=== PATIENT | male | born 1945 | race Caucasian/White ===

== ENCOUNTER 2016-12-31 06:05 | Observation (INO) | payer MEDICARE ==
[~2016-12-31 06:05] MED LIST: Buffered Lidocaine 1% SYR 3ML* 3 ML/SYR SYRINGE INTRADERM ONE; Famotidine IV* 10 MG/ML 2 ML (20 mg) IV ONE; Metoclopramide TAB* 10 MG PO ONE
[2016-12-31] MEDS ORDERED: Famotidine IV* 10 MG/ML 2 ML (20 mg) ONE (06:49)
[2016-12-31] MEDS ORDERED: ceFAZolin 2 GM PREMIX (*) 2 GM/50 ML BAG IVPB ONE (06:50)
[2016-12-31] MEDS ORDERED: Buffered Lidocaine 1% SYR 3ML* 3 ML/SYR SYRINGE ONE (06:50)
[2016-12-31] MEDS ORDERED: Metoclopramide TAB* 10 MG ONE (06:50)
[2016-12-31] MEDS ORDERED: Thrombin 5,000 UNITS* 1 APPLIC KIT - topical use - TOPICAL ONE (07:03)
[2016-12-31] MEDS ORDERED: Lidocain 1% EPI 1:100,000 * 30 ML MDV ONE (07:03)
[2016-12-31] MEDS ORDERED: Bacitracin IV* 50,000 UNITS INJ ONE (07:03)
[2016-12-31] MEDS ORDERED: Artificial Tear OPHTH.OINT* 3.5 GM ONE (07:23)
[2016-12-31] MEDS ORDERED: Midazolam* 1 MG/ML 5 ML VIAL (5 MG) ONE (07:25)
[2016-12-31] MEDS ORDERED: Dexamethasone IV* 4 MG/ML 1 ML (4 MG) ONE (07:25)
[2016-12-31] MEDS ORDERED: Ondansetron INJ* 2 MG/ML VIAL ONE (07:25)
[2016-12-31] MEDS ORDERED: Propofol* 10 MG/ML 20 ML BTL IV PUSH ONE (07:25)
[2016-12-31] MEDS ORDERED: Lidocaine 2% MPF* 2 ML VIAL ONE (07:25)
[2016-12-31] MEDS ORDERED: fentaNYL* 50 MCG/ML 2 ML VIAL (100 MCG VIAL) ONE ×2 (07:25→10:17)
[2016-12-31] MEDS ORDERED: Cisatracurium* 2 MG/ML MDV 10 ML ONE (07:25)
[2016-12-31] MEDS ORDERED: KETAMINE HCL* 50 MG/ML 10 ML VIAL ONE (07:25)
[2016-12-31] MEDS ORDERED: EPHEDrine (Pressors)* 50 MG/ML VIAL ONE (08:24)
[2016-12-31] MEDS ORDERED: oxyCODONE/Acetamin 5/325 MG* TAB PO PRN (08:34)
[2016-12-31] MEDS ORDERED: Ondansetron INJ* 2 MG/ML VIAL IV PRN ×2 (08:34→09:21)
[2016-12-31] MEDS ORDERED: HYDROmorphone INJ* 1 MG/ML CARPUJECT SYRINGE IV PRN (08:34)
[2016-12-31] MEDS ORDERED: Acetaminophen TAB* 325 MG PO PRN (09:21)
[2016-12-31] MEDS ORDERED: Magnesium Hydroxide LIQ* 30 ML UDC PO PRN (09:21)
[2016-12-31] MEDS ORDERED: Morphine INJ* 4 MG/ML 1 ML CARPUJECT IV PRN (09:30)
[2016-12-31] MEDS ORDERED: Nicotine PATCH 21 MG/24 HR* PATCH TRANSDERM SCH (10:00)
[2016-12-31] MEDS: fentaNYL* 50 MCG/ML 2 ML VIAL (100 MCG VIAL) IV PRN ×2 (10:18→10:27)
[2016-12-31] MEDS ORDERED: oxyCODONE TAB* 5 MG TAB ONE (11:44)
[2016-12-31] MEDS ORDERED: Morphine INJ* 4 MG/ML 1 ML CARPUJECT ONE (11:44)
[2016-12-31] MEDS: oxyCODONE TAB* 5 MG TAB PO PRN ×3 (11:47→20:32)
--- NOTE | 2016-12-31 13:46 | RAD ---
Indication: Decompressive L4-L5 lumbar laminectomy. Comparison: January 10, 2016 MRI. Prone crosstable lateral radiograph lumbar sacral spine 0820 hours: Anterior margin of surgical instrument at level of L4-L5 facet joints. Prone crosstable lateral radiograph lumbar sacral spine 0845 hours: Anterior margin of surgical instrument at the level of the posterior margin of the L5-S1 disc space. IMPRESSION: Procedural control films.
[2016-12-31] MEDS: sulfaSALAzine TAB* 500 MG PO SCH (17:12)
[2016-12-31] MEDS: Morphine TAB Extended Release (*) 30 MG TAB.ER PO PRN (20:32)
[2017-01-01] MEDS: oxyCODONE TAB* 5 MG TAB PO PRN ×3 (00:33→08:40)
--- NOTE | 2017-01-01 07:45 | PN ---
Progress Note - Progress Note SOAP: Subjective: [This is a 71 year old male s/p decompressive lumbar laminectomy L4-5 for spinal stenosis, POD #1. He complains this morning of low back incisional pain. He has been ambulating around the unit with resolution in pre-operative lower extremity pain. He is eating and drinking without difficulty. He denies lower extremity pain, numbness and weakness. No headache. ] Objective: [ Vital Signs: Temp Pulse Resp BP Pulse Ox 98.6 F 77 16 146/81 100 01/01/17 04:45 01/01/17 03:26 01/01/17 06:34 01/01/17 03:26 01/01/17 03:26 General: Alert and oriented. No distress. Neuro: Motor and sensory intact. Incision: Intact with [place]. PRATIBHA removed today without complication. No swelling. Extremities: Full ROM. PRATIBHA drain output 12/31/16 12/31/16 12/31/16 10:45 14:42 18:11 Output, PRATIBHA #1 40 15 30 12/31/16 01/01/17 01/01/17 22:00 03:02 06:00 Output, PRATIBHA #1 15 20 0 ] Assessment: [This patient is following a satisfactory post-op course. ] Plan: [1. Discharge home today. 2. Discharge instructions including wound care and activity level were discussed with the patient. ]
[2017-01-01 08:13] VITALS: BP 149/83
[2017-01-01] MEDS: sulfaSALAzine TAB* 500 MG PO SCH (08:39)
[2017-01-01] MEDS: Morphine TAB Extended Release (*) 30 MG TAB.ER PO PRN (08:40)
[2017-01-01] MEDS ORDERED: Lisinopril TAB* 10 MG PO SCH (09:00)
[2017-01-01] MEDS ORDERED: Colchicine* 0.6 MG TAB PO SCH (09:00)
[2017-01-01] MEDS ORDERED: Nicotine PATCH 21 MG/24 HR* PATCH TRANSDERM SCH (09:00)
[2017-01-01] MEDS ORDERED: Nicotine Patch Removal NOTE PATCH OFF SCH (21:00)
--- NOTE | 2017-01-01 22:48 | OP ---
DATE OF OPERATION: 12/31/16 - ROOM #338 DATE OF : 45 PRIMARY SURGEON: Dr. Pedro Tan. STORE LOSS PREVENTION MANAGER: GEORGE Martinez ANESTHESIOLOGIST: Luiz Isaacs MD ANESTHESIA: General. PRE-OP DIAGNOSIS: Lumbar spinal stenosis, L4-5. POST-OP DIAGNOSIS: Lumbar spinal stenosis, L4-5, L5-S1. OPERATIVE PROCEDURE: Decompressive lumbar laminectomy, L4-5, L5-S1. DESCRIPTION OF PROCEDURE: After satisfactory general anesthesia was obtained, the patient was placed on the operating room table in the prone position with the chest supported on the Ramos frame and the back slightly flexed. The lumbar region was clipped, prepped, and draped in a sterile manner for lumbar laminectomy and a skin incision outlined from L4 to the sacrum. This incision was infiltrated with 1% Xylocaine with epinephrine after which it was turned down sharply to the level of the lumbar fascia. The fascia was divided along the spinous processes of L4 and L5 and the para-spinal musculature was stripped away from these posterior elements using the periosteal elevator and monopolar cautery. An intraoperative x-ray was obtained verifying proper interspace localization after which a decompression was initially carried out at was what felt to be the L4-5 level. The spinous process of L4 was removed as was the spinous process of L5. The inferior aspect of the lamina was then removed. The pathology at this level was noted to be mild ligamentous thickening and a generous foraminotomy was carried out over both nerve roots. An additional radiograph was obtained showing that this indeed was the L5- S1 level and an additional superior exposure was obtained and the L4-5 level decompressed. At this level, the pathology was much more prominent with thickened bony hypertrophy of facets particularly at the level of the L5 pedicle. Generous decompressions were carried out on either side until both of the L5 nerve roots were noted to be free in their course. The disk was palpated and was noted to be flat. After assuring adequate hemostasis, the wound was thoroughly irrigated after which the Gelfoam was placed over the laminectomy defects. A drain was placed in the epidural space and tunnelled out toward the left side. The fascia was reapproximated with 0 Vicryl sutures. The subcutaneous tissue was closed with 3-0 Vicryl suture and the skin closed with skin clips. The estimated blood loss was less than 50 cc and the final sponge, pad, and needle counts were correct. The patient was taken to the recovery room, extubated and in stable condition. [id number]/[facility] #: [id number] [facility]ITALJodie
--- NOTE | 2017-01-07 23:36 | DS ---
DISCHARGE SUMMARY: DATE OF ADMISSION: 12/31/16 DATE OF DISCHARGE: 01/01/17 DISCHARGE DIAGNOSES: 1. Lumbar spinal stenosis, L4-L5. 2. Hypertension. 3. Rheumatoid arthritis. SPECIAL PROCEDURE: Decompressive lumbar laminectomy, L4-L5. HOSPITAL COURSE: This 71-year-old male was seen in the office with signs and symptoms of severe lumbar spinal stenosis. He failed to improve over several months of conservative treatment and was admitted at this time for elective surgical intervention. On the day of admission, he was taken to surgery where, under general anesthesia, a decompressive lumbar laminectomy at L4-L5 operation was carried out. Postoperatively, he was feeling well. The pain was well controlled. He was ambulating independently. Preoperative symptoms of lower extremity pain were improved. He was eating, drinking and voiding without difficulty. On the first postoperative day, he was discharged home to the care of her family. DISCHARGE INSTRUCTIONS: Discharge instructions including wound care and activity level were provided and discussed with the patient. He will be seen in the office in 7 to 10 days for followup and staple removal. DISCHARGE MEDICATIONS: No discharge medications prescribed. GEORGE SIMENTAL [id number]/[facility] #: [id number] MENDEL
== END 2017-01-01 10:00 | disposition home or self-care (01) ==
LOC: OR 06:05 → SSU 09:21
PROVIDERS: ADMIT Neurological Surgery; ATTEND Neurological Surgery
PROC: 01NB0ZZ Release Lumbar Nerve, Open Approach (ICD-10-PCS; 2016-12-31)
PROC: 0SB20ZZ Excision of Lumbar Vertebral Disc, Open Approach (ICD-10-PCS; principal; 2016-12-31 07:45)
DX: M48.06 Spinal stenosis, lumbar region (principal); I10 Essential (primary) hypertension; M06.9 Rheumatoid arthritis, unspecified; Z79.899 Other long term (current) drug therapy
CPT/HCPCS: 72100; 96374; 96375; A9270-GY; G0378; J0690; J1100; J2250; J2270; J2405; J2704; J3010

== ENCOUNTER 2017-11-28 14:50 | Emergency (ER) | payer MEDICARE ==
--- OUTSIDE RECORDS SUMMARY | 2017-11-28 14:56 | XMS REPORT | Continuity of Care Document ---
:1945 Author Organization [facility] Address [address], [place] [id number] Phone Care Team Providers Name Role Phone Lexi Garcia MD Unavailable Unavailable Lexi Garcia MD Unavailable Unavailable Allergies, Adverse Reactions, Alerts Substance Reaction Severity Status No Known Allergies Unknown Active Medications Medication Instructions Dosage Effective Dates Status Comments (start - stop) SULFASALAZINE DR 500 TAKE THREE TABLETS BY 1500 MG - Active MG TAB MOUTH TWICE A DAY AFTER MEALS COLCRYS 0.6 MG TABLET TAKE ONE TABLET BY 0.6 MG - Active MOUTH EVERY DAY lisinopril 40 mg take 1 tablet by oral 40 MG - Active tablet route every day morphine ER 30 mg take 1 capsule by 30 MG - Active capsule,extended oral route 2 times release 24 hr every day multiphase amitriptyline 10 mg take 1 tablet by oral 10 MG - Active tablet route every day gabapentin 400 mg take 1 capsule by 400 MG - Active capsule oral route 3 times every day oxycodone 15 mg tablet take 1 tablet by oral 15 MG - Active route every 6 hours as needed Problems Condition Effective Dates (start - stop) Clinical Status Rheumatoid arthritis w/o rheumatoid factor of multiple sites Other watermaster drug therapy Other disorders of calcium metabolism Rheumatoid arthritis w/o rheumatoid factor of multiple sites Other intermediate drug therapy Other disorders of calcium metabolism Rheumatoid arthritis w/o rheumatoid factor of multiple sites Other disorders of calcium metabolism Other intermediate drug therapy Lumbago Rheumatoid arthritis w/o rheumatoid factor of multiple sites Other intermediate drug therapy Other disorders of calcium metabolism Rheumatoid arthritis w/o rheumatoid factor of multiple sites Other watermaster drug therapy Lumbago Other disorders of calcium metabolism Rheumatoid factor negative - Active Procedures Procedure Date Unknown Results Test Name Date and Time Measure Units Reference Range Abnormal Flag Comments Unknown Advance Directives Directive Yes / No Effective Date File Name Unknown Encounters Encounter Practice Location Reason(s) Diagnoses Date Provider Care Team Description For Visit Members Arthritis Arthritis [facility] PA- March. Niles Cage 7 5794 [facility], 5794 PLLC [facility], [place], [place], [id number], [id number], [place]. [place] tel:[phone] tel:[phone] Arthritis Arthritis [facility] PA- March. Associates [facility], 5[address] PLL[facility], [place], [place], [id number], [place]. [place] tel:[phone] tel:[phone] Arthritis Arthritis Rheumatoid [facility] arthritis w/o PA- March. Provider: Niles Cage rheumatoid 7 5794 [facility], 5794 PLLC factor of [facility], [address] [facility], [facility], sitesOther [place], [address], [place], disorders of [place], [place], [place], calcium [id number], [id number]. [id number], metabolismOth [place]. tel:[phone] [place] er intermediate tel:[phone] tel:[phone] drug [phone] ring [phone] therapyLumbag Provider: ardha Garcia MD , [address] [place] [address], [id number]. tel:[phone] Arthritis Arthritis Rheumatoid [facility] arthritis w/o PA- March. Provider: Niles Cage rheumatoid 6 [phone] [facility], 5794 PLLC factor of [facility] DO, [address] [facility], [facility], sitesOther [place], [address], [place], [place], [place], [place], drug [id number], [id number]. [id number], therapyOther [place]. tel:[phone] [place] disorders of tel:[phone] tel:[phone] calcium [phone] ring [id number] metabolism Provider: Lexi Argueta, [address] [place] [address], [id number]. tel:[phone] Arthritis Arthritis Rheumatoid [facility] arthritis w/o PA-C March. Provider: Niles Cage rheumatoid 6 5794 [facility], 5[facility]C factor of [facility], [address] [facility], [facility], sitesOther [place], [address], [place], [place], [place], [place], [place], drug [id number], [address]. [id number], therapyOther [place]. tel:[phone] [place] disorders of tel:[phone] tel:[phone] calcium [phone] ring [id number] metabolism Provider: Lexi Argueta, [address] [place], [place], [id number]. tel:[phone] Arthritis Arthritis Rheumatoid [facility] arthritis w/o PA-C March. Provider: Niles johnson 6 5794 [facility], 5794 PLLC factor of [facility], [address] [facility], [facility], sitesOther [place], [address], [place], [place], [place], [place], [place], drug [id number], [address]. [id number], therapyLumbag [place]. tel:[phone] [place] oOther tel:[phone] tel:[phone] disorders of [phone] ring [phone] calcium Provider: metabolism Lexi Argueta, [address] [place], [place], [id number]. tel:[phone] Arthritis Arthritis Rheumatoid [facility] arthritis w/o PA-C March. Provider: Niles Cage rheumatoid 5 5794 [facility], 5794 PLLC factor of [facility] DO, [address] [facility] [address] [facility], [facility], sitesOther [place], [address], [place], [place], [place], [place], [place], drug [id number], [address]. [id number], therapyOther [place]. tel:[phone] [place] disorders of tel:[phone] tel:[phone] calcium [phone] ring [id number] metabolism Provider: Lexi Garcia MD , [address] [place] [address], [place], [place], [id number]. tel:[phone] Arthritis Arthritis [facility], [place] 4-201 MD Cormier. Provider: [facility] 5 5794 Lexi [facility], 5794 PLLC [facility] [place], , [address] [place] [address], [place], [place], [place], [id number], [place], [place], [id number], [place]. [id number]. [place] tel:[phone] tel:[phone] tel:[phone] Family History Family Member Diagnosis Age At Onset Status Brother aneurysm , brain 70 N Immunizations Vaccine Date Status Comments Influenza, injectable, trivalent, completed - Completed reason: New split virus, 4 years and older, Fluvirin [id number] Flu (split) (3 yrs or older) completed - Completed reason: Other Provider Pneumococcal polysaccharide PPV23 completed - Completed reason: Other Provider Payers Payer name Insurance type Covered libertarian ID Authorization(s) [employer] 16 [id number] [employer] 16 [id number] Social History Type Description Quantity Date Captured Unknown Vital Signs Date / Height Weight BMI Pulse Blood Temperature Respiratory Body Head BMI Time: Rate Pressure Rate Surface Circumference percentile Area Unknown Chief Complaint And Reason For Visit Unknown Chief Complaint And Reason For Visit Reason For Referral Reason For Referral Unknown Plan Of Care Date Type Action Status Appointment Tripp Lucas BOOKED Date Type Problem Goal Intervention Status Start Date Unknown. History Of Present Illness Encounter Date Complaint History Of Present Illness This patient has no known history of present illness Functional Status Encounter Date Functional Assessment Cognitive Assessment Unknown Medications Administered Medication Instructions Dosage Effective Dates (start - stop) Status Comments Drug Treatment Unknown Instructions Date Instruction Additional Information Risks/benefits of medications reviewed Hold Medication and call if any side effect develops. Patient plan printed and given along with recommendations. Call if symptoms worsen. Reviewed importance of compliance/adherence to medications prescribed Risks/benefits of medications reviewed Discussed importance of holding DMARDs/ biologics if patient develops an infection and to notify the treating physician Reviewed importance of compliance/adherence to medications prescribed Risks/benefits of medications reviewed Discussed importance of holding DMARDs/ biologics if patient develops an infection and to notify the treating physician Risks/benefits of medications reviewed Reviewed importance of compliance/adherence to medications prescribed Risks/benefits of medications reviewed Discussed importance of holding DMARDs/ biologics if patient develops an infection and to notify the treating physician Reviewed importance of compliance/adherence to medications prescribed Risks/benefits of medications reviewed Discussed importance of holding DMARDs/ biologics if patient develops an infection and to notify the treating physician Diagnostic studies discussed/reviewed: Labs Reviewed importance of compliance/adherence to medications prescribed Risks/benefits of medications reviewed Discussed importance of holding DMARDs/ biologics if patient develops an infection and to notify the treating physician
[2017-11-28 15:06] VITALS: BP 114/71
[2017-11-28] MEDS ORDERED: Aspirin Low Dose CHEW TAB* 81 MG PO ONE (15:27)
--- NOTE | 2017-11-28 15:35 | UC ---
Cardiac HPI - HPI Summary HPI Summary: INTERMITTENT SHARP LEFT SIDED CHEST PAIN OVER THE PAST FEW DAYS. RADIATES THROUGH TO HIS BACK. HAS SOME ASSOCIATED SOB BUT DENIES NAUSEA, FEVER, SWEATS, SYNCOPE. ALSO REPORTS HIS LEFT FINGERS ARE INTERMITTENTLY NUMB AND TINGLY. SX WORSE WITH DEEP BREATHS. BETTER IF HE MOVES AROUND. HAS HAD SOME SHARP LEFT SIDED ABDOMINAL PAIN OVER THE PAST FEW MONTHS WELL. - History of Current Complaint Chief Complaint: UCChestPain Stated Complaint: CHEST PAIN,SOB Time Seen by Provider: 11/28/17 15:15 Hx Obtained From: Patient Onset/Duration: Sudden Onset, Lasting Days Timing: Intermittent Episodes Lasting: Initial Severity: Moderate Current Severity: None Pain Intensity: 9 - AT ITS WORST Chest Pain Location: Left Anterior Character: Sharp/Stabbing Aggravating Factor(s): Deep Breaths Alleviating Factor(s): Spontaneous Resolution Associated Signs & Symptoms: Positive: Chest Pain, Numbness, Tingling, SOB - Allergy/Home Medications Allergies/Adverse Reactions: Allergies Allergy/AdvReac Type Severity Reaction Status Date / Time No Known Allergies Allergy Verified 11/28/17 15:06 Home Medications: Home Medications Oxycodone TAB(NF) [Oxycodone HCl 10 MG] 10 mg PO Q6H PRN 11/28/17 [History Confirmed 11/28/17] PMH/Surg Hx/FS Hx/Imm Hx - Additional Past Medical History Additional PMH: BACK PAIN Cardiovascular History: Hypertension - Surgical History Surgical History: Yes Surgery Procedure, Year, and Place: 2001 RIGHT TOTAL KNEE REPLACEMENT, [facility]. 2014 LEFT KNEE ARTHROSCOPIC SURGERY, [facility]. 2016 Back surgery - Family History Known Family History: Positive: Cardiac Disease, Hypertension - Social History Alcohol Use: Rare Substance Use Type: None Smoking Status (MU): Light Every Day Tobacco Smoker Type: Cigars Amount Used/How Often: 1 CIGAR EVERY 2-3 DAYS X 50 YEARS Length of Time of Smoking/Using Tobacco: 50 YEARS Have You Smoked in the Last Year: Yes Household Exposure Type: Cigars - Immunization History Most Recent Influenza Vaccination: FALL 2015 Most Recent Tetanus Shot: 2009 Most Recent Pneumonia Vaccination: 2014 Review of Systems Constitutional: Negative Respiratory: Shortness Of Breath Cardiovascular: Chest Pain Gastrointestinal: Negative Neurological: Paresthesia - LEFT FINGERS, Numbness - LEFT FINGERS All Other Systems Reviewed And Are Negative: Yes Physical Exam Triage Information Reviewed: Yes Appearance: Well-Appearing, No Pain Distress, Well-Nourished Vital Signs: Initial Vital Signs Temp 98.8 F 11/28/17 14:58 Pulse 85 11/28/17 14:58 Resp 18 11/28/17 14:58 BP 114/71 11/28/17 14:58 Pulse Ox 96 11/28/17 14:58 Vital Signs Reviewed: Yes Eyes: Positive: Conjunctiva Clear ENT: Positive: Hearing grossly normal Neck: Positive: Supple Respiratory Exam: Normal Cardiovascular Exam: Normal Abdomen Description: Positive: Soft Musculoskeletal: Positive: No Edema Neurological: Positive: Alert Psychological: Positive: Age Appropriate Behavior Skin: Negative: rashes Diagnostics - EKG Cardiac Rate: NL Cardiac Rhythm: Sinus: Normal - 82 BPM Ectopy: None ST Segment: Normal - Assessment/Plan Course Of Treatment: TO [facility] ED BY PRIVATE CAR - Clinical Impression Provider Diagnoses: CHEST PAIN Discharge - Discharge Plan Condition: Stable Disposition: OTHER Discharge Disposition Comment: TO [facility] ED BY PRIVATE CAR Patient Education Materials: Chest Pain (ED) Referrals: Lexi Garcia MD [Primary Care Provider] - If Needed Additional Instructions: GO DIRECTLY TO THE [facility] ED FROM HERE FOR FURTHER EVALUATION. YOU RECEIVED ASPIRIN 81MG X 4 IN THE .
== END 2017-11-28 15:36 ==
LOC: UCEAST 14:50
DX: R07.9 Chest pain, unspecified (principal); R06.02 Shortness of breath; I10 Essential (primary) hypertension; F17.210 Nicotine dependence, cigarettes, uncomplicated
CPT/HCPCS: 93005; 99212; A9270-GY; G0463

== ENCOUNTER 2017-11-28 15:55 | Emergency (ER) | payer MEDICARE ==
[2017-11-28] MEDS ORDERED: Aspirin Low Dose CHEW TAB* 81 MG PO ONE (16:07)
[2017-11-28 17:00] LABS: ABS Basophils 0.1 10^3/ul (0-0.2); ABS Eosinophils 0.3 10^3/ul (0-0.6); ABS Lymphocytes 0.9 10^3/ul (1.0-4.8); ABS Monocytes 0.5 10^3/ul (0-0.8); ABS Neutrophils 4.4 10^3/ul (1.5-7.7); ABS Nucleated RBC 0 10^3/ul; Eosinophil % 4.4 % (0-6); Hematocrit 39 % (42-52); Hemoglobin 12.8 g/dl (14.0-18.0); Lymphocyte % 15.2 % (25-47); Mean Corpuscular HGB Conc 33 g/dl (31-36); Mean Corpuscular Hemoglobin 30 pg (27-31); Mean Corpuscular Volume 89 fL (80-94); Mean Platelet Volume 9 um3 (7.4-10.4); Nucleated Red Blood Cells % 0; Platelet Count 279 10^3/ul (150-450); Red Blood Count 4.35 10^6/ul (4.0-5.4); Red Cell Distribution Width 14 % (10.5-15); White Blood Count 6.2 10^3/ul (3.5-10.8)
[2017-11-28 17:16] LABS: EGFR Non-African American 57.8 (>60)
--- NOTE | 2017-11-28 17:18 | RAD ---
INDICATION: Chest pain. COMPARISON: Comparison is made with a prior chest x-ray study from November 15, 2016. TECHNIQUE: A portable view of the chest was obtained. FINDINGS: Cardiac and mediastinal contours appear to be within normal limits. The lungs are clear. The previous seen noted nodular densities in the right upper lobe are not visualized. No pleural effusion is seen. IMPRESSION: NO EVIDENCE FOR ACUTE DISEASE.
[2017-11-28] MEDS ORDERED: NS 0.9% 1000 ML* 1,000 ML IV ONE (17:36)
[2017-11-28 20:09] VITALS: BP 113/89
--- NOTE | 2017-11-28 22:20 | ED ---
Nick Lucas Natalie, scribed for Jeff Bennett MD on 11/28/17 at 1637 . HPI Chest Pain - HPI Summary HPI Summary: The pt is a 72 y/o M presenting to the ED from [facility] c/o chest pain starting five days ago. The pain is described as sharp pain in LUQ that radiates to left back. The pain is rated 1/0 in severity. The patient is not currently in pain in the ED. When the pain is present, the pain is aggravated by breathing and is alleviated by nothing. The patient has treated the pain with ASA DIFFERENTIAL TESTER at [facility]. Pt additionally c/o SOB at night and chest pressure starting a few months ago. He smokes cigars occasionally. He has hx of HTN. - History of Current Complaint Chief Complaint: EDChestPainROMI Time Seen by Provider: 11/28/17 16:07 Hx Obtained From: Patient Onset/Duration: Started Days Ago - started five days ago Timing: Intermittent Initial Severity: Mild Current Severity: Mild Pain Intensity: 1 Pain Scale Used: 0-10 Numeric Chest Pain Location: Left Anterior Chest Pain Radiates: Yes Chest Pain Radiates To:: Back Character: Sharp/Stabbing, Tightness Aggravating Factor(s): Deep Breaths Alleviating Factor(s): Nothing Associated Signs and Symptoms: Positive: Chest Pain, Shortness of Breath, Back Pain, Other: - chest pressure - Additional Pertinent History Primary Care Physician: SOFÍA - Allergy/Home Medications Allergies/Adverse Reactions: Allergies Allergy/AdvReac Type Severity Reaction Status Date / Time No Known Allergies Allergy Verified 11/28/17 16:01 PMH/Surg Hx/FS Hx/Imm Hx Previously Healthy: No Endocrine/Hematology History: Denies: Hx Thyroid Disease Cardiovascular History: Reports: Hx Hypertension Respiratory History: Reports: Other Respiratory Problems/Disorders - RECENT HX OF LUNG INFECTION - ZPACK - NO PROBLEMS NOW GI History: Denies: Hx Ulcer Musculoskeletal History: Reports: Hx Arthritis - RHEUMATOID Sensory History: Reports: Hx Contacts or Glasses - READING GLASSES Denies: Hx Hearing Aid Opthamlomology History: Reports: Hx Contacts or Glasses - READING GLASSES Psychiatric History: Denies: Hx Panic Disorder - Surgical History Surgery Procedure, Year, and Place: 2001 RIGHT TOTAL KNEE REPLACEMENT, [facility] [place]. 2014 LEFT KNEE ARTHROSCOPIC SURGERY, [facility] [place]. 2016 Back surgery Hx Anesthesia Reactions: No Infectious Disease History: No Infectious Disease History: Denies: Hx Clostridium Difficile, Hx Hepatitis, Hx Human Immunodeficiency Virus (HIV), Hx of Known/Suspected MRSA, Hx Shingles, Hx Tuberculosis, Hx Known/ Suspected VRE, Hx Known/Suspected VRSA, History Other Infectious Disease, Traveled Outside the [place] in Last 30 Days - Family History Known Family History: Positive: Cardiac Disease, Hypertension - Social History Alcohol Use: Rare Substance Use Type: Reports: None Smoking Status (MU): Light Every Day Tobacco Smoker Type: Cigars Amount Used/How Often: 1 CIGAR EVERY 2-3 DAYS X 50 YEARS Length of Time of Smoking/Using Tobacco: 50 YEARS Have You Smoked in the Last Year: Yes Review of Systems Negative: Fever Positive: Chest Pain, Other - chest pressure Positive: Shortness Of Breath All Other Systems Reviewed And Are Negative: Yes Physical Exam Triage Information Reviewed: Yes Vital Signs On Initial Exam: Initial Vitals Temp Pulse Resp BP Pulse Ox 97.8 F 76 16 142/75 96 11/28/17 16:01 11/28/17 16:01 11/28/17 16:01 11/28/17 16:01 11/28/17 16:01 Vital Signs Reviewed: Yes Appearance: Positive: Well-Appearing, No Pain Distress Skin: Positive: Warm, Skin Color Reflects Adequate Perfusion, Dry, Other - fungal changes in finger nails Head/Face: Positive: Normal Head/Face Inspection Eyes: Positive: EOMI, WENDY ENT: Positive: Normal ENT inspection Neck: Positive: Supple, Nontender Respiratory/Lung Sounds: Positive: Clear to Auscultation, Breath Sounds Present Cardiovascular: Positive: RRR, Pulses are Symmetrical in both Upper and Lower Extremities Abdomen Description: Positive: Nontender, Soft Bowel Sounds: Positive: Present Musculoskeletal: Positive: Normal, Strength/ROM Intact, Other - no edema Neurological: Positive: Normal, Sensory/Motor Intact, Alert, Oriented to Person Place, Time Diagnostics - Vital Signs Vital Signs Temp Pulse Resp BP Pulse Ox 11/28/17 16:01 97.8 F 76 16 142/75 96 - Laboratory Lab Results: Lab Results 11/28/17 11/28/17 11/28/17 Range/Units 16:45 16:45 16:45 WBC 6.2 (3.5-10.8) 10^3/ul RBC 4.35 (4.0-5.4) 10^6/ul Hgb 12.8 L (14.0-18.0) g/dl Hct 39 L (42-52) % MCV 89 (80-94) fL MCH 30 (27-31) pg MCHC 33 (31-36) g/dl RDW 14 (10.5-15) % Plt Count 279 (150-450) 10^3/ul MPV 9 (7.4-10.4) um3 Neut % (Auto) 71.0 (38-83) % Lymph % (Auto) 15.2 L (25-47) % Hardin % (Auto) 8.4 (1-9) % Eos % (Auto) 4.4 (0-6) % Baso % (Auto) 1.0 (0-2) % Absolute Neuts (auto) 4.4 (1.5-7.7) 10^3/ul Absolute Lymphs (auto) 0.9 L (1.0-4.8) 10^3/ul Absolute Monos (auto) 0.5 (0-0.8) 10^3/ul Absolute Eos (auto) 0.3 (0-0.6) 10^3/ul Absolute Basos (auto) 0.1 (0-0.2) 10^3/ul Absolute Nucleated RBC 0 10^3/ul Nucleated RBC % 0 INR (Anticoag Therapy) 0.90 (0.77-1.02) APTT 33.7 (26.0-36.3) seconds D-Dimer, Quantitative < 200 (Less Than 230) ng/mL Sodium (133-145) mmol/L Potassium (3.5-5.0) mmol/L Chloride (101-111) mmol/L Carbon Dioxide (22-32) mmol/L Anion Gap (2-11) mmol/L BUN (6-24) mg/dL Creatinine (0.67-1.17) mg/dL Est GFR ( Amer) (>60) Est GFR (Non-Af Amer) (>60) BUN/Creatinine Ratio (8-20) Glucose (70-100) mg/dL Lactic Acid (0.5-2.0) mmol/L Calcium (8.6-10.3) mg/dL Total Bilirubin (0.2-1.0) mg/dL AST (13-39) U/L ALT (7-52) U/L Alkaline Phosphatase (34-104) U/L CK-MB (CK-2) (0.6-6.3) ng/mL Troponin I (<0.04) ng/mL B-Natriuretic Peptide 64 ( - 100) pg/mL Total Protein (6.4-8.9) g/dL Albumin (3.2-5.2) g/dL Globulin (2-4) g/dL Albumin/Globulin Ratio (1-3) Lipase (11.0-82.0) U/L 11/28/17 11/28/17 11/28/17 Range/Units 16:45 16:45 18:48 WBC (3.5-10.8) 10^3/ul RBC (4.0-5.4) 10^6/ul Hgb (14.0-18.0) g/dl Hct (42-52) % MCV (80-94) fL MCH (27-31) pg MCHC (31-36) g/dl RDW (10.5-15) % Plt Count (150-450) 10^3/ul MPV (7.4-10.4) um3 Neut % (Auto) (38-83) % Lymph % (Auto) (25-47) % Hardin % (Auto) (1-9) % Eos % (Auto) (0-6) % Baso % (Auto) (0-2) % Absolute Neuts (auto) (1.5-7.7) 10^3/ul Absolute Lymphs (auto) (1.0-4.8) 10^3/ul Absolute Monos (auto) (0-0.8) 10^3/ul Absolute Eos (auto) (0-0.6) 10^3/ul Absolute Basos (auto) (0-0.2) 10^3/ul Absolute Nucleated RBC 10^3/ul Nucleated RBC % INR (Anticoag Therapy) (0.77-1.02) APTT (26.0-36.3) seconds D-Dimer, Quantitative (Less Than 230) ng/mL Sodium 140 (133-145) mmol/L Potassium 4.1 (3.5-5.0) mmol/L Chloride 106 (101-111) mmol/L Carbon Dioxide 29 (22-32) mmol/L Anion Gap 5 (2-11) mmol/L BUN 23 (6-24) mg/dL Creatinine 1.23 H (0.67-1.17) mg/dL Est GFR ( Amer) 74.4 (>60) Est GFR (Non-Af Amer) 57.8 (>60) BUN/Creatinine Ratio 18.7 (8-20) Glucose 124 H (70-100) mg/dL Lactic Acid 1.4 (0.5-2.0) mmol/L Calcium 9.1 (8.6-10.3) mg/dL Total Bilirubin 0.30 (0.2-1.0) mg/dL AST 26 (13-39) U/L ALT 17 (7-52) U/L Alkaline Phosphatase 49 (34-104) U/L CK-MB (CK-2) 13.3 H (0.6-6.3) ng/mL Troponin I 0.01 0.00 (<0.04) ng/mL B-Natriuretic Peptide ( - 100) pg/mL Total Protein 6.3 L (6.4-8.9) g/dL Albumin 3.6 (3.2-5.2) g/dL Globulin 2.7 (2-4) g/dL Albumin/Globulin Ratio 1.3 (1-3) Lipase 41 (11.0-82.0) U/L Result Diagrams: 11/28/17 16:45 11/28/17 16:45 Lab Statement: Any lab studies that have been ordered have been reviewed, and results considered in the medical decision making process. - Radiology CXR Xray Interpretation: No Acute Changes - No evidence for acute disease. ED physician has reviewed this report. - EKG 16:13 Cardiac Rate: NL EKG Rhythm: Sinus Rhythm - 67 BPM EKG Interpretation: Nml axis. Nml interval. Nml ST. Re-Evaluation - Re-Evaluation First Eval Re-Evaluation Time: 20:25 Change: Improved Comment: The patient is not having any chest pain. His second EKG was negative. Chest Pain Course/Dx - Course Course Of Treatment: VIOLET score 1. Constant pain, largely none now. ASA here. ECG wnl. Trop x 2 neg. For outpt stress test Tues. No infiltrates. Add pepcid to cover poss GI source and close f/u - Diagnoses Provider Diagnoses: Atypical chest pain Discharge - Discharge Plan Condition: Good Disposition: HOME Prescriptions: Famotidine TAB* [Pepcid 20 MG TAB*] 20 mg PO BID #20 tab Patient Education Materials: Chest Pain (ED) Referrals: Lexi Garcia MD [Primary Care Provider] - Additional Instructions: take a baby aspirin daily. Return with more chest pain, trouble breathing, worse or other concerns as discussed. Call your doctor Tues to schedule an outpatient stress test and recheck with the doctor. The documentation as recorded by the Nick vickers Natalie accurately reflects the service I personally performed and the decisions made by me, Jeff Bennett MD.
== END 2017-11-28 20:58 | disposition home or self-care (01) ==
LOC: ED 15:55
DX: R07.89 Other chest pain (principal); I10 Essential (primary) hypertension; F17.290 Nicotine dependence, other tobacco product, uncomplicated
CPT/HCPCS: 36415; 71010; 80053; 82553; 83605; 83690; 83880; 84484; 85025; 85379; 85610; 85730; 93005; 96360; 96361; 99283; A9270-GY

== ENCOUNTER 2018-07-21 12:21 | Emergency (ER) | payer MEDICARE ==
[2018-07-21 12:51] VITALS: BP 169/86
--- NOTE | 2018-07-21 13:05 | UC ---
Skin Complaint HPI - HPI Summary HPI Summary: 72 yo male presents with left achilles pain that began 1 week ago. He tells me that he is unsure if he injured the area, but notes that when he got up one morning he felt some pain in his hell. Since that time, as the day progresses and he is active and on his feet often, his heel will begin to hurt. He noticed yesterday that this area is red and tender to touch and wonders if he was bitten by something - although does not remember being bitten by anything. He is on chronic narcotic pain medication for pain. Since this achilles pain he has been using a cane, which helps. Denies fever, chills, numbness, or tingling. No recent anbx use in the last 60 days. - History of Current Complaint Chief Complaint: UCLowerExtremity Time Seen by Provider: 07/21/18 13:05 Stated Complaint: L ANKLE PAIN Hx Obtained From: Patient Onset/Duration: Gradual Onset Skin Exposure Onset/Duration: Weeks Ago Timing: Constant Onset Severity: Moderate Current Severity: Severe Pain Intensity: 8 Pain Scale Used: 0-10 Numeric - Allergy/Home Medications Allergies/Adverse Reactions: Allergies Allergy/AdvReac Type Severity Reaction Status Date / Time No Known Allergies Allergy Verified 07/21/18 12:42 Review of Systems Constitutional: Negative Skin: Negative Respiratory: Negative Musculoskeletal: Other: - Left achilles pain Neurological: Negative Psychological: Negative All Other Systems Reviewed And Are Negative: Yes PMH/Surg Hx/FS Hx/Imm Hx - Additional Past Medical History Additional PMH: Chronic pain Cardiovascular History: Hypertension - Surgical History Surgical History: Yes Surgery Procedure, Year, and Place: 2001 RIGHT TOTAL KNEE REPLACEMENT, [facility] [place]. 2014 LEFT KNEE ARTHROSCOPIC SURGERY, [facility] [place]. 2016 Back surgery - Family History Known Family History: Positive: Cardiac Disease, Hypertension - Social History Occupation: Disabled Lives: With Family Alcohol Use: Rare Substance Use Type: None Smoking Status (MU): Light Every Day Tobacco Smoker Type: Cigars Amount Used/How Often: 1 CIGAR EVERY 2-3 DAYS X 50 YEARS Length of Time of Smoking/Using Tobacco: 50 YEARS Have You Smoked in the Last Year: Yes Household Exposure Type: Cigars - Immunization History Most Recent Influenza Vaccination: FALL 2015 Most Recent Tetanus Shot: 2009 Most Recent Pneumonia Vaccination: 2014 Physical Exam - Summary Physical Exam Summary: GENERAL: NAD. WDWN. No pain distress. SKIN: No rashes, sores, lesions, or open wounds. CHEST: No accessory muscle use. Breathing comfortably and in no distress. CV: Pulses intact PT and DP. Cap refill <2seconds MSK: LEFT achilles: Moderate TTP at insertion. FROM, but pain with dorsiflexion. Mild erythema overlying the lower tendon and insertion point without appreciable bug bite. Strength 5/5. No edema or obvious bony deformities. Negative talar tilt. No increased laxity. Negative [place] test. NEURO: Alert. Sensations intact and symmetric B/L LEs PSYCH: Age appropriate behavior. Triage Information Reviewed: Yes Vital Signs: Initial Vital Signs Temp 99.1 F 07/21/18 12:46 Pulse 63 07/21/18 12:46 Resp 18 07/21/18 12:46 BP 169/86 07/21/18 12:46 Pulse Ox 98 07/21/18 12:46 Vital Signs Reviewed: Yes Course/Dx - Course Course Of Treatment: Suspect achilles tendinitis. Pt was placed in a CAM boot and advised to take ibuprofen, RICE, and follow up with Orthopedics. He declined crutches today. - Diagnoses Provider Diagnoses: Left achilles tendinitis Discharge - Sign-Out/Discharge Documenting (check all that apply): Patient Departure All imaging exams completed and their final reports reviewed: No Studies - Discharge Plan Condition: Stable Disposition: HOME Patient Education Materials: Achilles Tendinitis (ED) Referrals: Lexi Garcia MD [Primary Care Provider] - Koby Beasley MD [Medical Doctor] - As Soon As Possible Additional Instructions: If you develop a fever, shortness of breath, chest pain, new or worsening symptoms - please call your PCP or go to the ED. Your blood pressure was high at todays visit. Please see your primary provider within 4 weeks for recheck and re-evaluation. 1) Use the CAM boot daily to help with pain and walking 2) Rest, ice, and elevate your foot as much as possible 3) Please call Orthopedics at the number below to schedule a follow up appointment as soon as possible - Billing Disposition and Condition Condition: STABLE Disposition: Home
== END 2018-07-21 13:29 | disposition home or self-care (01) ==
LOC: UCEAST 12:21
DX: M76.62 Achilles tendinitis, left leg (principal); F17.290 Nicotine dependence, other tobacco product, uncomplicated
CPT/HCPCS: 99212; G0463